=== PATIENT | female | born 1945 | race American Indian/Alaskan Native ===

== ENCOUNTER 2019-05-03 10:29 | Day surgery (SDC) | payer MEDICARE ==
[~2019-05-03 10:29] MED LIST: SODIUM CHLORIDE 0.9% 1000 ML 1,000 ML IV SCH
[2019-05-03] MEDS ORDERED: WATER FOR IRRIG STERILE 250 ML BOTTLE IR ONE (10:42)
[2019-05-03] MEDS ORDERED: PROPOFOL 200 MG/20 ML VIAL IV ONE (10:47)
[2019-05-03] MEDS ORDERED: fentaNYL 100 MCG/2 ML INJ ONE (14:07)
[2019-05-03] MEDS ORDERED: LIDOCAINE VISCOUS 2% 15 ML ORAL LIQD ONE (14:07)
--- NOTE | 2019-05-03 14:08 | Anesthesia Day of Surgery ---
Anesthesia Day of Surgery - Day of Surgery Patient Examined: Yes Patient H&P Reviewed: Yes Patient is NPO: Yes
--- NOTE | 2019-05-03 14:08 | Anesthesia Consultation ---
Anesthesia Consult and Med Hx Date of service: 05/03/19 - Airway Anesthetic Teeth Evaluation: Poor ROM Head & Neck: Adequate Mental/Hyoid Distance: Adequate Mallampati Class: Class III Intubation Access Assessment: Possibly Difficult - Pulmonary Exam CTA: Yes - Cardiac Exam Cardiac Exam: RRR - Pre-Operative Health Status ASA Pre-Surgery Classification: ASA4 Proposed Anesthetic Plan: MAC - Pulmonary Hx Smoking: No (quit 20yrs ago) SOB: Yes (chronic; occasional w/ exertion) COPD: Yes Home Oxygen Therapy: No Hx Sleep Apnea: Yes (noncompliant with CPAP) - Cardiovascular System Hx Hypertension: Yes Hx Heart Attack/AMI: No (hx CHF) Hx Percutaneous Transluminal Coronary Angioplasty (PTCA): No Hx Cardia Arrhythmia: Yes (patient unsure of specific diagnosis) Hx Pacemaker: No Hx Internal Defibrillator: No - Central Nervous System CVA: No Hx Back Pain: Yes (BACK AND NECK PAIN) - Gastrointestinal Hx Gastroesophageal Reflux Disease: Yes - Endocrine Hx End Stage Renal Disease: Yes (last HD 04/30/2019) Hx Liver Disease: No Hx Insulin Dependent Diabetes: Yes Hx Thyroid Disease: No - Hematic Hx Anemia: Yes - Other Systems Hx Obesity: No - Additional Comments Anesthesia Medical History Comments: No hx anesthetic complications. No signs/symptoms acute HF exacerbation. Will check K+ prior to procedure.
[2019-05-03 14:27] LABS: Calcium 9.8 mg/dL (8.4-10.2)
[2019-05-03 15:41] VITALS: BP 117/83
--- NOTE | 2019-05-03 17:02 | Post Anesthesia Evaluation ---
- Post Anesthesia Evaluation Patient Participated: Yes Airway Patent: Yes Stable Respiratory Function: Yes Nausea/Vomiting: No Temp > 96.8F: Yes Pain Manageable: Yes Adequeate Hydration: Yes Anesthesia Complications: No Block Receding Appropriately: Not Applicable Patient on Ventilator: No
--- NOTE | 2019-05-03 17:28 | Operative Report ---
Operative Report Operative Report: Procedure: Esophagogastroduodenoscopy with multiple mucosal biopsies. Attending physician: Tyrel Joe MD Traffic Technician: Tyrel Joe MD Indication: Patient is a 73 -year-old female who presented with a history of epigastric pain, nausea, heartburn, and indigestion . An upper endoscopy is done to assess patient, so that treatment may be directed based on the findings. Consent: Informed consent was obtained after advising the patient and family regarding nature of this procedure, its indications, potential benefits as well as possible complications including but not limited to bleeding perforation and adverse reaction to medication, infection as well as other cardiopulmonary complications. An informed written and verbal consent was then obtained after due opportunity was provided for questions and answers. Monitoring: Patient was monitored continuously with pulse oximetry and electrocardiographic recordings as well as blood pressure recordings. Vital signs remained stable throughout this procedure with no untoward events. Preoperative assessment: Patient was assessed immediately prior to this procedure for capacity to tolerate monitored anesthesia care and moderate sedation as well as general anesthesia. Patient's ASA classification is 3, Mallampati class is 2, Hyomental distance is 3. Instrument: Olympus video endoscope Medications: Propofol given intravenously in divided doses. For details please refer to anesthesia records. Description of procedure: Patient was placed in the left lateral decubitus position after achieving sedation, the endoscope was introduced into the esophagus under direct vision. It was then advanced beyond the esophagus into the stomach and then beyond the stomach into the duodenum and to the second portion of the duodenum. It was subsequently withdrawn with careful inspection of all mucosal surfaces with the following findings. Findings: Patient has an irregular Z line at 38 cm. There were linear erosions seen in the distal esophagus. Patient had mild erosive esophagitis involving the distal esophagus. There was a small diminutive sliding hiatal hernia seen on entry into the stomach. There was some erythema in the gastric antrum with surrounding erosions. Biopsies of the antrum were obtained for histopathology. In the duodenum my patient had erosions particularly in the duodenal bulb. Impression: Irregular Z line. Mild erosive esophagitis Hiatal hernia Gastric antral erythema Gastric antral erosions Duodenal bulb erosions Plan: Continue treatment with proton pump inhibitors. Follow pathology report. Direct additional treatment based on the pathology report.
--- NOTE | 2019-05-03 17:29 | Discharge Summary ---
Short Stay Discharge Plan Activity: advance as tolerated Weight Bearing Status: Non-Weight Bearing Diet: regular Additional Instructions: Post Sedation D/C Instructions When you return home you may resume your regular diet unless otherwise directed. -Go directly home from the hospital and rest quietly. You may resume normal activities tomorrow. -Do NOT drive, return to work, operate any machinery or make any important personal or business decisions today. -Do NOT drink any alcohol or take nerve or sleeping drugs. They add to the effects of the medicine still present in your body. -NO ASPIRIN OR NSAIDS IN THE NEXT 3-5 DAYS -FOLLOW UP WITH DR. ESTRADA IN THE NEXT 1-2 WEEKS FOR RESULTS OF TODAY'S VISIT AND BIOPSY Follow up with: KELLY CAO MD [Primary Care Provider] - 7 Days
== END 2019-05-03 10:30 | disposition home or self-care (01) ==
LOC: EDBD 10:29 → GIO 10:29
PROVIDERS: ATTEND Internal Medicine Gastroenterology
DX: R10.13 Epigastric pain (principal); R11.0 Nausea; K21.9 Gastro-esophageal reflux disease without esophagitis; K44.9 Diaphragmatic hernia without obstruction or gangrene; I13.2 Hypertensive heart and chronic kidney disease with heart failure and with stage 5 chronic kidney disease, or end stage renal disease; N18.6 End stage renal disease; E11.22 Type 2 diabetes mellitus with diabetic chronic kidney disease; I50.9 Heart failure, unspecified; E78.00 Pure hypercholesterolemia, unspecified; I42.9 Cardiomyopathy, unspecified; J44.9 Chronic obstructive pulmonary disease, unspecified; G47.30 Sleep apnea, unspecified; E11.42 Type 2 diabetes mellitus with diabetic polyneuropathy; G62.9 Polyneuropathy, unspecified; E05.90 Thyrotoxicosis, unspecified without thyrotoxic crisis or storm; Z88.0 Allergy status to penicillin; Z88.2 Allergy status to sulfonamides; Z79.899 Other long term (current) drug therapy; Z88.8 Allergy status to other drugs, medicaments and biological substances; D64.9 Anemia, unspecified; Z79.4 Long term (current) use of insulin; Z79.82 Long term (current) use of aspirin; Z90.49 Acquired absence of other specified parts of digestive tract; Z90.710 Acquired absence of both cervix and uterus; M19.90 Unspecified osteoarthritis, unspecified site; Z99.2 Dependence on renal dialysis; Z90.5 Acquired absence of kidney; Z80.0 Family history of malignant neoplasm of digestive organs
CPT/HCPCS: 36415; 43239; 80048; J2704; J3010; J7030; 82962; 88305; 88342

== ENCOUNTER 2019-05-17 10:11 | Day surgery (SDC) | payer MEDICARE ==
--- NOTE | 2019-05-17 11:22 | Anesthesia Day of Surgery ---
Anesthesia Day of Surgery - Day of Surgery Patient Examined: Yes Patient H&P Reviewed: Yes Patient is NPO: Yes Beta Blockers: No Cardiac Clearance: No Pulmonary Clearance: No
--- NOTE | 2019-05-17 11:25 | Anesthesia Consultation ---
Anesthesia Consult and Med Hx Date of service: 05/17/19 - Airway Anesthetic Teeth Evaluation: Poor ROM Head & Neck: Adequate Mental/Hyoid Distance: Adequate Mallampati Class: Class II Intubation Access Assessment: Probably Good - Pulmonary Exam CTA: Yes - Cardiac Exam Cardiac Exam: RRR - Pre-Operative Health Status ASA Pre-Surgery Classification: ASA4 Proposed Anesthetic Plan: General, MAC - Pulmonary Hx Smoking: No (quit 20yrs ago) Hx Asthma: No (hx of bronchitis) SOB: Yes (chronic; occasional w/ exertion) COPD: Yes Hx Sleep Apnea: Yes - Cardiovascular System Hx Hypertension: Yes Hx Heart Attack/AMI: No (hx CHF) Hx Cardia Arrhythmia: Yes (patient unsure of specific diagnosis) - Central Nervous System CVA: No Hx Back Pain: Yes (BACK AND NECK PAIN) - Gastrointestinal Hx Gastroesophageal Reflux Disease: Yes - Endocrine Hx Renal Disease: Yes (CHRONIC) Hx End Stage Renal Disease: Yes Hx Liver Disease: No Hx Insulin Dependent Diabetes: Yes Hx Thyroid Disease: Yes Hx Hyperthyroidism: Yes - Hematic Hx Anemia: Yes - Other Systems Hx Alcohol Use: No Hx Substance Use: No Hx Cancer: No Hx Obesity: No
[2019-05-17] MEDS ORDERED: propofoL 200 MG/20 ML VIAL IV ONE (11:44)
--- NOTE | 2019-05-17 14:59 | Operative Report ---
Operative Report Operative Report: Colonoscopy with hot biopsy polypectomy. DATE: 05/17/2019 ATTENDING PHYSICIAN: Tyrel Joe M.D. AERIAL ERECTOR: Tyrel Joe M.D. INDICATIONS: Patient is a 73 y.o. female who presents for colonoscopy because of personal history of diffuse abdominal pain and constipation. This colonoscopy is done to evaluate patient so that treatment may be directed based on the findings. CONSENT: Informed consent was obtained after the patient was advised regarding the nature of this procedure, its indications, potential benefits as well as possible complications including but not limited to bleeding, perforation, adverse reaction to medications, infection as well as cardiopulmonary complications. An informed written and verbal consent was then obtained after due opportunity was provided for questions and answers. MONITORING: Patient monitored continuously with pulse oximetry, electrocardiographic recordings as well as automatic blood pressure recordings. Patient remained stable throughout the procedure with no untoward events. PREOPERATIVE ASSESSMENT: Patient was assessed immediately prior to this procedure for capacity to tolerate moderate sedation/monitored anesthesia care. [employer] anesthesiology association classification is 2. Mallampati class is 2. Hyomental distance is 3. INSTRUMENT: Olympus video colonoscope [id number]. MEDICATIONS: Propofol given intravenously in divided doses. For details, please refer to anesthesia records. DESCRIPTION OF PROCEDURE: Patient was placed in the left lateral decubitus position, after achieving sedation, a digital rectal examination was performed following which the colonoscope was introduced into the anal verge and advanced under direct visualization to the cecum which was identified by the ileocecal valve, the appendiceal orifice, the cecal strap as well as by direct transillumination in the right lower quadrant. Color texture mucosa and anatomy of the colon were carefully examined with the colonoscope. The colonoscope was then gently withdrawn with careful inspection of all mucosa surfaces. The patient tolerated the procedure well with no complications. After completion of the examination, patient was transferred to the recovery room. The prep written regimen was GoLYTELY and the preparation was fair. The following findings were noted. FINDINGS: The [place] prep scale score was 6 and a depression was deemed adequate for the colonoscopic evaluation. The withdrawal time from the cecum was greater than 6 minutes. This study is deemed adequate. Patient had diverticulosis involving the ascending colon, sigmoid colon and the descending colon. In the distal sigmoid colon, patient had a diminutive polyp measuring approximately 4 mm. This was removed by hot biopsy polypectomy and retrieved. There was some scattered thick liquid stool in sections of the colon which was fairly easily irrigated to optimize visualization. On the retroflexed view at the anal verge patient had internal hemorrhoids. IMPRESSION: Diminutive sigmoid colon polyp status post hot biopsy polypectomy Colonic diverticulosis. Internal Hemorrhoids otherwise normal colonoscopy. . PLAN: High fiber diet. PRN analgesics PRN stool softeners as may be needed to ameliorate patient's constipation Additional steps will be taken in outpatient follow-up.
--- NOTE | 2019-05-17 15:00 | Discharge Summary ---
Short Stay Discharge Plan Activity: advance as tolerated Weight Bearing Status: Weight Bear as Tolerated Diet: regular Follow up with: NASIM CONTRERAS MD [Primary Care Provider] - 7 Days
[2019-05-17 15:28] VITALS: BP 115/55
== END 2019-05-17 10:12 | disposition home or self-care (01) ==
LOC: EDBD → GIO 10:11
PROVIDERS: ATTEND Internal Medicine Gastroenterology
DX: R10.84 Generalized abdominal pain (principal); K59.00 Constipation, unspecified; K63.89 Other specified diseases of intestine; K57.30 Diverticulosis of large intestine without perforation or abscess without bleeding; K64.8 Other hemorrhoids; K51.40 Inflammatory polyps of colon without complications; J44.9 Chronic obstructive pulmonary disease, unspecified; G47.30 Sleep apnea, unspecified; I13.2 Hypertensive heart and chronic kidney disease with heart failure and with stage 5 chronic kidney disease, or end stage renal disease; E11.22 Type 2 diabetes mellitus with diabetic chronic kidney disease; N18.6 End stage renal disease; E78.00 Pure hypercholesterolemia, unspecified; K21.9 Gastro-esophageal reflux disease without esophagitis; E66.9 Obesity, unspecified; Z88.0 Allergy status to penicillin; Z88.1 Allergy status to other antibiotic agents; Z88.2 Allergy status to sulfonamides; Z88.8 Allergy status to other drugs, medicaments and biological substances; Z79.82 Long term (current) use of aspirin; Z79.899 Other long term (current) drug therapy; Z79.84 Long term (current) use of oral hypoglycemic drugs; Z90.710 Acquired absence of both cervix and uterus; Z98.890 Other specified postprocedural states; Z68.29 Body mass index [BMI] 29.0-29.9, adult
CPT/HCPCS: 45384; 82962; 88305; J2704; J7030

== ENCOUNTER 2020-01-05 10:24 | Emergency (ER) | payer MEDICARE ==
--- NOTE | 2020-01-05 10:50 | Emergency Department Report ---
ED Abdominal Pain HPI - General Stated Complaint: N/V PUI?: No Time Seen by Provider: 01/05/20 10:35 Source: patient Mode of arrival: Stretcher Limitations: No Limitations - History of Present Illness Initial Comments: Mrs. Lopez is a 74-year-old female who presents with nausea vomiting. Past medical history includes end-stage renal disease on hemodialysis Friday. Last hemodialysis occurred on Friday. She also has a history of insulin-dependent diabetes mellitus. Today she has nausea vomiting mild nondescript abdominal pain. Patient states abdominal discomfort feels like a tumor. Her stomach becomes distended. Her stomach goes "in and out" According to electronic record, patient underwent colonoscopy earlier this year. Diagnosis polyps and diverticulosis. Patient states that she uses 2 L nasal cannula oxygen at home. Patient received dialysis at [address] Heard I spoke with the llama farmer of personal-skilled nursing Janina Newell at [phone] she informed me that patient was discharged 6 weeks ago from [facility] to another personal skilled nursing. Patient resided at her home for 2 weeks. Patient has been in [facility] for 1 month. Patient had been followed at [facility] on prior occasion for medical care. Mrs. Newell has decided to obtain a new PCP for Mrs. Lopez. First appt with Dr. Tidwell scheduled for tomorrow. Additional history was obtained by sales operations. I spoke with nurse practitioner Brooke Belcher. Additional history includes atrial flutter, atrial fibrillation, diastolic heart failure. She is taking Eliquis due to noncompliance with warfarin. Medications include: allopurinol Eliquis Aspirin Bumex Gabapentin Isosorbide mononitrate Lipitor Metoprolol Pantoprazole Zay LAGUNAS Complaint: abdominal pain -: Gradual, This morning Location: diffuse (Central) Radiation: none Severity: mild Quality: dull Consistency: now resolved Improves With: nothing Worsens With: nothing Associated Symptoms: nausea, vomiting - Related Data Home Medications Medication Instructions Recorded Confirmed Last Taken Gabapentin 600 mg PO QID 02/04/13 05/17/19 05/16/19 Hydrochlorothiazide 25 mg PO DAILY 02/04/13 05/17/19 05/16/19 Insulin NPH/Regular [NovoLIN 70/30] 12 units SQ AC 02/04/13 05/17/19 05/16/19 Insulin NPH/Regular [NovoLIN 70/30] 32 units SQ AC 02/04/13 05/17/19 05/16/19 Insulin NPH/Regular [NovoLIN 70/30] 50 units SQ QAM 02/04/13 05/17/19 05/16/19 Metoprolol [Lopressor TAB] 200 mg PO DAILY 02/04/13 05/17/19 05/16/19 NIFEdipine [Nifedical Xl] 60 mg PO DAILY 02/04/13 05/17/19 05/16/19 glipiZIDE [Glipizide ER] 10 mg PO DAILY 02/04/13 05/17/19 05/16/19 lisinopriL [Lisinopril] 40 mg PO DAILY 02/04/13 05/17/19 05/16/19 ALPRAZolam 1 mg PO DAILY 05/03/19 05/17/19 05/16/19 Albuterol INH(or & Nicu Only) 2 puff INHALATION PRN PRN 05/03/19 05/17/19 05/02/19 Aspirin BABY CHEW TAB 81 mg PO DAILY 05/03/19 05/17/19 05/16/19 Bumetanide 2 mg tab 1 tab PO DAILY 05/03/19 05/17/19 05/16/19 Celexa 10 mg PO DAILY 05/03/19 05/17/19 05/16/19 Diabetic Tussin Dm Max-Str Liq 10 mg PO PRN PRN 05/03/19 05/17/19 Unknown Folic Acid 1 mg PO DAILY 05/03/19 05/17/19 05/16/19 Ipratropium/Albuterol Sulfate 0.5 - 3 mg INHALATION DAILY 05/03/19 05/17/19 05/16/19 Isosorbide Dinitrate ER 30 mg PO DAILY 05/03/19 05/17/19 05/16/19 Neurontin 100 mg PO DAILY 05/03/19 05/17/19 05/16/19 NexIUM 40 mg PO DAILY 05/03/19 05/17/19 05/16/19 Nitroglycerin 0.4 mg SUBLINGUAL PRN PRN 05/03/19 05/17/19 Unknown Rosuvastatin Calcium 10 mg PO DAILY 05/03/19 05/17/19 05/16/19 Senna 8.6 mg PO DAILY 05/03/19 05/17/19 05/16/19 Sevelamer HCl 800 mg PO DAILY 05/03/19 05/17/19 05/16/19 Sodium Bicarbonate 650 mg PO DAILY 05/03/19 05/17/19 05/16/19 allopurinoL 100 mg PO DAILY 05/03/19 05/17/19 05/16/19 amLODIPine 10 mg PO DAILY 05/03/19 05/17/19 05/17/19 Previous Rx's Medication Instructions Recorded Last Taken Type Ondansetron [Zofran Odt] 1 tab PO Q8HR PRN #10 tab.rapdis 01/05/20 Unknown Rx Allergies Allergy/AdvReac Type Severity Reaction Status Date / Time lisinopril Allergy Intermediate Unknown Verified 05/03/19 07:23 Sulfa (Sulfonamide Allergy Intermediate Vomiting Verified 05/03/19 07:23 Antibiotics) penicillin G Allergy Hives Verified 05/03/19 07:23 pentazocine lactate Allergy Swelling Verified 05/03/19 07:23 [From [facility]] ED Review of Systems ROS: Stated complaint: N/V Other details as noted in HPI Comment: All other systems reviewed and negative Constitutional: denies: fever, malaise Gastrointestinal: abdominal pain, nausea, vomiting ED Past Medical Hx - Past Medical History Previous Medical History?: Yes Hx Hypertension: Yes Hx Heart Attack/AMI: No (hx CHF) Hx Congestive Heart Failure: Yes Hx Diabetes: Yes Hx Liver Disease: No Hx Renal Disease: Yes (CHRONIC) Hx Arthritis: Yes Hx COPD: Yes - Surgical History Past Surgical History?: Yes Hx Pacemaker: No Hx Internal Defibrillator: No Hx Appendectomy: Yes (1960) Additional Surgical History: Left upper extremity AV fistula - Social History Smoking Status: Never Smoker - Medications Home Medications: Home Medications Medication Instructions Recorded Confirmed Last Taken Type Gabapentin 600 mg PO QID 02/04/13 05/17/19 05/16/19 History Hydrochlorothiazide 25 mg PO DAILY 02/04/13 05/17/19 05/16/19 History Insulin NPH/Regular [NovoLIN 70/30] 12 units SQ AC 02/04/13 05/17/19 05/16/19 History Insulin NPH/Regular [NovoLIN 70/30] 32 units SQ AC 02/04/13 05/17/19 05/16/19 History Insulin NPH/Regular [NovoLIN 70/30] 50 units SQ QAM 02/04/13 05/17/19 05/16/19 History Metoprolol [Lopressor TAB] 200 mg PO DAILY 02/04/13 05/17/19 05/16/19 History NIFEdipine [Nifedical Xl] 60 mg PO DAILY 02/04/13 05/17/19 05/16/19 History glipiZIDE [Glipizide ER] 10 mg PO DAILY 02/04/13 05/17/19 05/16/19 History lisinopriL [Lisinopril] 40 mg PO DAILY 02/04/13 05/17/19 05/16/19 History ALPRAZolam 1 mg PO DAILY 05/03/19 05/17/19 05/16/19 History Albuterol INH(or & Nicu Only) 2 puff INHALATION PRN PRN 05/03/19 05/17/19 05/02/19 History Aspirin BABY CHEW TAB 81 mg PO DAILY 05/03/19 05/17/19 05/16/19 History Bumetanide 2 mg tab 1 tab PO DAILY 05/03/19 05/17/19 05/16/19 History Celexa 10 mg PO DAILY 05/03/19 05/17/19 05/16/19 History Diabetic Tussin Dm Max-Str Liq 10 mg PO PRN PRN 05/03/19 05/17/19 Unknown History Folic Acid 1 mg PO DAILY 05/03/19 05/17/19 05/16/19 History Ipratropium/Albuterol Sulfate 0.5 - 3 mg INHALATION DAILY 05/03/19 05/17/19 05/16/19 History Isosorbide Dinitrate ER 30 mg PO DAILY 05/03/19 05/17/19 05/16/19 History Neurontin 100 mg PO DAILY 05/03/19 05/17/19 05/16/19 History NexIUM 40 mg PO DAILY 05/03/19 05/17/19 05/16/19 History Nitroglycerin 0.4 mg SUBLINGUAL PRN PRN 05/03/19 05/17/19 Unknown History Rosuvastatin Calcium 10 mg PO DAILY 05/03/19 05/17/19 05/16/19 History Senna 8.6 mg PO DAILY 0205/17/19 05/16/19 History Sevelamer HCl 800 mg PO DAILY 05/03/19 05/17/19 05/16/19 History Sodium Bicarbonate 650 mg PO DAILY 05/03/19 05/17/19 05/16/19 History allopurinoL 100 mg PO DAILY 05/03/19 05/17/19 05/16/19 History amLODIPine 10 mg PO DAILY 05/03/19 05/17/19 05/17/19 History Ondansetron [Zofran Odt] 1 tab PO Q8HR PRN #10 tab.rapdis 01/05/20 Unknown Rx ED Physical Exam - General General appearance: alert, in no apparent distress - Head Head exam: Present: atraumatic, normocephalic - Eye Eye exam: Present: normal appearance - ENT ENT exam: Present: mucous membranes moist - Neck Neck exam: Present: normal inspection, full ROM - Respiratory Respiratory exam: Present: normal lung sounds bilaterally. Absent: respiratory distress - Cardiovascular Cardiovascular Exam: Present: normal rhythm, tachycardia, irregular rhythm, normal heart sounds. Absent: systolic murmur, diastolic murmur, rubs, gallop - GI/Abdominal GI/Abdominal exam: Present: soft, normal bowel sounds. Absent: distended, tenderness - Extremities Exam Extremities exam: Present: normal inspection - Neurological Exam Neurological exam: Present: alert, oriented X3 - Psychiatric Psychiatric exam: Present: normal affect, normal mood - Skin Skin exam: Present: warm, dry, intact, normal color. Absent: rash ED Course Vital Signs 01/05/20 01/05/20 01/05/20 10:50 10:55 11:01 Temperature 98.1 F Pulse Rate 105 H 127 H 110 H Respiratory 20 25 H 18 Rate Blood Pressure 136/46 136/46 132/39 O2 Sat by Pulse 91 98 97 Oximetry 01/05/20 01/05/20 01/05/20 11:15 11:31 11:45 Temperature Pulse Rate 95 H 100 H 110 H Respiratory 16 14 33 H Rate Blood Pressure 132/39 132/39 111/39 O2 Sat by Pulse 97 99 97 Oximetry 01/05/20 01/05/20 01/05/20 12:01 12:15 12:31 Temperature Pulse Rate 110 H Respiratory 32 H 18 17 Rate Blood Pressure 122/40 122/40 122/40 O2 Sat by Pulse 98 97 90 Oximetry 01/05/20 01/05/20 01/05/20 12:36 12:45 12:54 Temperature Pulse Rate Respiratory 20 15 18 Rate Blood Pressure 112/37 O2 Sat by Pulse 97 95 Oximetry 01/05/20 01/05/20 01/05/20 13:01 13:15 13:31 Temperature Pulse Rate 101 H 99 H 99 H Respiratory 14 15 10 L Rate Blood Pressure 106/43 106/43 106/43 O2 Sat by Pulse 98 98 99 Oximetry 01/05/20 01/05/20 01/05/20 13:55 14:01 14:15 Temperature Pulse Rate Respiratory Rate Blood Pressure 118/64 109/77 109/77 O2 Sat by Pulse 98 99 100 Oximetry ED Medical Decision Making - Lab Data Result diagrams: 01/05/20 10:55 01/05/20 10:55 Laboratory Results - last 24 hr 01/05/20 01/05/20 10:55 10:55 WBC 7.6 RBC 3.42 L Hgb 10.8 Hct 33.0 MCV 96 MCH 32 MCHC 33 RDW 16.2 H Plt Count 209 Lymph % (Auto) 16.7 Williams % (Auto) 11.0 H Eos % (Auto) 0.5 Baso % (Auto) 0.4 Lymph # (Auto) 1.3 Williams # (Auto) 0.8 Eos # (Auto) 0.0 Baso # (Auto) 0.0 Seg Neutrophils % 71.4 H Seg Neutrophils # 5.4 Sodium 140 Potassium 4.2 Chloride 91.2 L Carbon Dioxide 31 H Anion Gap 22 BUN 51 H Creatinine 8.1 H Estimated GFR 6 BUN/Creatinine Ratio 6 Glucose 197 H Calcium 9.6 Total Bilirubin 0.60 Direct Bilirubin < 0.2 Indirect Bilirubin 0.4 AST 12 ALT 14 Alkaline Phosphatase 98 Total Protein 7.9 Albumin 3.7 L Albumin/Globulin Ratio 0.9 Lipase 55 - EKG Data 01/05/20 14:13 EKG obtained 1213 Atrial fibrillation rate ventricular rate 110 bpm normal axis prolonged QTC no ST elevation nonspecific T wave pattern - Radiology Data Radiology results: report reviewed CHEST 1 VIEW 01/05/2020 12:01 PM INDICATION / CLINICAL INFORMATION: generalized malaise hx of ESRD. COMPARISON: None available. FINDINGS: SUPPORT DEVICES: Right internal jugular dialysis catheter projects over SVC. HEART / MEDIASTINUM: Moderate cardiomegaly. LUNGS / PLEURA: No significant pulmonary or pleural abnormality. No pneumothorax. ADDITIONAL FINDINGS: No significant additional findings. IMPRESSION: 1. Cardiomegaly without CHF CT abdomen pelvis no radiology impression no inflammatory process or bowel obstruction, arterial catheter secretions, fat containing umbilical hernia - Medical Decision Making Ms. Lopez is a 74-year-old female with history of heart failure diastolic, atrial fibrillation atrial flutter on Eliquis, end-stage renal disease Friday who presents with nausea vomiting stomach upset. Patient insist that she has a "tumor" in her stomach. CT abdomen pelvis revealed umbilical hernia. My impression is that this is the distention and discomfort that she is experiencing. I discussed case with nephrology PIPELINE ENGINEER Brooke Belcher. She stated that Dr. Keyes wanted to ensure that patient tolerated a meal before she is discharged. Patient indeed tolerated lunch. She actually felt better after eating. I spoke with [facility] llama farmer Joana Newell regarding work-up and treatment plan. She will be prescribed Zofran. [facility] llama farmer understands that Mrs. Lopez must go to dialysis on Friday. Vital Signs - 8 hr 01/05/20 01/05/20 01/05/20 10:50 10:55 11:01 Temperature 98.1 F Pulse Rate 105 H 127 H 110 H Respiratory 20 25 H 18 Rate Blood Pressure 136/46 136/46 132/39 O2 Sat by Pulse 91 98 97 Oximetry 01/05/20 01/05/20 01/05/20 11:15 11:31 11:45 Temperature Pulse Rate 95 H 100 H 110 H Respiratory 16 14 33 H Rate Blood Pressure 132/39 132/39 111/39 O2 Sat by Pulse 97 99 97 Oximetry 01/05/20 01/05/20 01/05/20 12:01 12:15 12:31 Temperature Pulse Rate 110 H Respiratory 32 H 18 17 Rate Blood Pressure 122/40 122/40 122/40 O2 Sat by Pulse 98 97 90 Oximetry 01/05/20 01/05/20 01/05/20 12:36 12:45 12:54 Temperature Pulse Rate Respiratory 20 15 18 Rate Blood Pressure 112/37 O2 Sat by Pulse 97 95 Oximetry 01/05/20 01/05/20 01/05/20 13:01 13:15 13:31 Temperature Pulse Rate 101 H 99 H 99 H Respiratory 14 15 10 L Rate Blood Pressure 106/43 106/43 106/43 O2 Sat by Pulse 98 98 99 Oximetry 01/05/20 01/05/20 01/05/20 13:55 14:01 14:15 Temperature Pulse Rate Respiratory Rate Blood Pressure 118/64 109/77 109/77 O2 Sat by Pulse 98 99 100 Oximetry Critical care attestation.: If time is entered above; I have spent that time in minutes in the direct care of this critically ill patient, excluding procedure time. ED Disposition Clinical Impression: Nausea & vomiting, Umbilical hernia, End-stage renal disease on hemodialysis Disposition: - TO HOME OR SELFCARE Is pt being admited?: No Does the pt Need Aspirin: No Condition: Stable Instructions: Abdominal Pain (ED), Umbilical Hernia (ED) Prescriptions: Ondansetron [Zofran Odt] 1 tab PO Q8HR PRN #10 tab.rapdis PRN Reason: nausea vomiting
[2020-01-05 11:25] LABS: Basophils % (Auto) 0.4 % (0.0-1.8); Eosinophils % (Auto) 0.5 % (0.0-4.3); Hemoglobin 10.8 gm/dl (10.1-14.3); Lymphocytes # (Auto) 1.3 K/mm3 (1.2-5.4); Lymphocytes % (Auto) 16.7 % (13.4-35.0); Mean Corpuscular HGB Conc 33 % (30-34); Mean Corpuscular Volume 96 fl (79-97); Monocytes # (Auto) 0.8 K/mm3 (0.0-0.8); Platelet Count 209 K/mm3 (140-440); Red Blood Count 3.42 M/mm3 (3.65-5.03); Red Cell Distribution Width 16.2 % (13.2-15.2)
[2020-01-05 11:53] LABS: Alanine Aminotransferase 14 units/L (7-56); Albumin 3.7 g/dL (3.9-5); BUN/Creatinine Ratio 6; Bilirubin,Direct < 0.2 mg/dL (0-0.2); Blood Urea Nitrogen 51 mg/dL (7-17); Calcium 9.6 mg/dL (8.4-10.2); Hemolysis Index 6
[2020-01-05] MEDS ORDERED: ONDANSETRON 4 MG/2 ML INJ IV ONE (12:29)
[2020-01-05] MEDS ORDERED: PANTOPRAZOLE 40 MG INJ IV ONE (12:29)
[2020-01-05] MEDS ORDERED: MORPHINE 4 MG/1 ML INJ IV ONE (12:29)
--- NOTE | 2020-01-05 13:08 | XRay Report ---
CHEST 1 VIEW 01/05/2020 12:01 PM INDICATION / CLINICAL INFORMATION: generalized malaise hx of ESRD. COMPARISON: None available. FINDINGS: SUPPORT DEVICES: Right internal jugular dialysis catheter projects over SVC. HEART / MEDIASTINUM: Moderate cardiomegaly. LUNGS / PLEURA: No significant pulmonary or pleural abnormality. No pneumothorax. ADDITIONAL FINDINGS: No significant additional findings. IMPRESSION: 1. Cardiomegaly without CHF Signer Name: Gabriel Marcial MD Signed: 01/05/2020 1:04 PM Workstation Name: [id number]
--- NOTE | 2020-01-05 14:27 | Cat Scan Report ---
CT ABDOMEN AND PELVIS WITHOUT CONTRAST INDICATION / CLINICAL INFORMATION: abdominal pain. Hx of "tumor". History of ESRD. TECHNIQUE: Axial CT images were obtained through the abdomen and pelvis without IV contrast. All CT scans at [facility] location are performed using CT dose reduction for ALARA by means of automated exposure control. COMPARISON: None available. FINDINGS: LOWER CHEST: Cardiomegaly but no acute pulmonary or pleural findings. LIVER: No significant abnormality. GALLBLADDER: No significant abnormality. BILE DUCTS: No significant abnormality. PANCREAS: No significant abnormality. SPLEEN: No significant abnormality. ADRENALS: No significant abnormality. RIGHT KIDNEY / URETER: No significant abnormality. LEFT KIDNEY / URETER: No significant abnormality. STOMACH / SMALL BOWEL: No significant abnormality. COLON: Mild diverticulosis without acute inflammation. APPENDIX: Not visualized. PERITONEUM: No free fluid. No free air. No fluid collection. LYMPH NODES: No significant adenopathy. AORTA / ARTERIES: Extensive arterial calcifications characteristic of diabetes and/or renal failure. IVC / VEINS: No significant abnormality. URINARY BLADDER: No significant abnormality. REPRODUCTIVE ORGANS: No significant abnormality. ADDITIONAL FINDINGS: Small to moderate-sized fat-containing umbilical hernia. SKELETAL SYSTEM: No significant abnormality. IMPRESSION: 1. No inflammatory process or bowel obstruction. 2. Extensive arterial calcifications characteristic of diabetes and/or renal failure. 3. Fat-containing umbilical hernia. Signer Name: Rosa Fontana MD Signed: 01/05/2020 2:23 PM Workstation Name: [id number]
[2020-01-05 14:29] VITALS: BP 109/77
== END 2020-01-05 22:52 | disposition home or self-care (01) ==
LOC: ED 10:24
DX: K42.9 Umbilical hernia without obstruction or gangrene (principal); E11.22 Type 2 diabetes mellitus with diabetic chronic kidney disease; I13.2 Hypertensive heart and chronic kidney disease with heart failure and with stage 5 chronic kidney disease, or end stage renal disease; I50.9 Heart failure, unspecified; N18.6 End stage renal disease; M19.90 Unspecified osteoarthritis, unspecified site; J44.9 Chronic obstructive pulmonary disease, unspecified; Z98.890 Other specified postprocedural states; Z90.49 Acquired absence of other specified parts of digestive tract; Z79.82 Long term (current) use of aspirin; Z79.899 Other long term (current) drug therapy; Z88.2 Allergy status to sulfonamides; Z88.0 Allergy status to penicillin; Z88.8 Allergy status to other drugs, medicaments and biological substances
CPT/HCPCS: 36415; 71045; 74176; 80048; 80076; 83690; 85025; 93005; 96374; 96375; 99285; C9113; J2270; J2405